=== PATIENT | male | born 1965 | race Caucasian/White ===

== ENCOUNTER → 2022-11-17 09:10 | Outpatient (CLI) | payer BC, SELFPAY ==
[2022-11-17 12:05] LABS: COVID19 -Nasal RAPID Negative (Negative)
== END ==
PROVIDERS: PCP Family Medicine; Visit Provider Surgery
DX: Z20.822 Contact with and (suspected) exposure to COVID-19 (principal); Z01.812 Encounter for preprocedural laboratory examination
CPT/HCPCS: 87635; C9803

== ENCOUNTER 2022-11-18 10:43 | Day surgery (SDC) | payer BC, SELFPAY ==
--- NOTE | 2022-11-18 | PATH_ITS ---
[facility] Accession Number: [id number] No. of containers..01 Tissue . 01 Material submitted: . colon - TRANSVERSE POLYP . 01 Diagnosis: Transverse Colon, Polyp, Biopsy: Sessile serrated adenoma. MRV 11/20/2022 1613 Local . 01 Electronically signed: . Ne Inman MD, Pathologist NPI- [id number] . 01 Gross description: . The specimen is received in formalin labeled with the patient's name, , and transverse polyp, consists of four irregular lynch soft tissue fragments ranging from 0.2 to 0.5 cm in greatest dimension. Submitted entirely in cassette A1. ([id number]) /MRV 11/19/2022 1439 Local . 01 Pathologist provided ICD-10: D12.3 . 01 CPT . 356614 Performed at: 01 [facility] [address] [place] [address], [place], [place] [id number] MD Justen Shin MD Phone: [phone]
[2022-11-18 11:38] VITALS: BP 158/102; PULSE 81; RESP 14; TEMP 36.6; O2SAT 96
[2022-11-18 11:41] VITALS: BMI 33.0
--- NOTE | 2022-11-18 11:42 | PM.HP.1 ---
History of Present Illness History of Present Illness Date Patient Seen: 11/18/22 Time Patient Seen: 11:42 Chief complaint: SDC Narrative: The patient presents for colorectal screening. They have never had any previous examination for such. No personal or family history of colon cancer. On further history denies any recent gastrointestinal symptoms. No nausea, vomiting, abdominal pain, loss of appetite, unexplained weight loss, change in bowel habits, or blood per rectum. Meds Home Medications and Allergies Home Medications Medication Instructions Recorded Confirmed Type albuterol sulfate 90 mcg/actuation 2 puff INH QID #1 ea 12/11/17 Rx aerosol inhaler (Ventolin HFA) atorvastatin 20 mg tablet mg 11/18/22 History Allergies Allergy/AdvReac Type Severity Reaction Status Date / Time No Known Allergies Allergy Uncoded 11/18/22 11:36 Exam Vital Signs (past 8 hours): - 11/18/22 11:38 Temperature 97.9 F Pulse Rate 81 Respiratory Rate 14 Blood Pressure 158/102 H Pulse Oximetry 96 Oxygen Delivery Method Room Air Oxygen Delivery Method Room Air Narrative Exam Narrative: General adult man alert oriented no acute distress Abdomen soft nontender nondistended Assessment & Plan Assessment & Plan narrative: The patient requires colorectal screening and colonoscopy is recommended. Technical details were discussed. Risks, benefits, alternatives explained. Risks including but not limited to myocardial infarction, aspiration, bleeding, pain, missed lesion, incomplete examination, need for further radiographic studies, colonic perforation, and need for major abdominal surgery were discussed. All questions were answered to their satisfaction, and they are in agreement with this plan. Time Spent With Patient Critical Care time: I spent a total of [] minutes of critical care time on this patient's care today; this time is exclusive of procedural time.
[2022-11-18] MEDS: LACTATED RINGERS 1,000 ML 200 ML IV (11:48)
--- NOTE | 2022-11-18 12:48 | PM.OP.COLON ---
Operative Date/Time/Diagnoses Date of procedure: 11/18/22 Time of procedure: 12:48 Pre-op diagnosis: Colorectal screening Post-op diagnosis: same Procedure & Clinicians Study performed: Colonoscopy Same procedure as scheduled: Yes Indications: Colorectal screening Surgeon: Rupesh Mcconnell Procedure Notes Procedure in detail: The history and physical was performed/updated and the patient is ASA class is 2. The procedure was discussed in detail with the patient. Potential risks complications including infection, bleeding, missed diagnosis, perforation, need for surgery, and were explained. Their questions were answered and informed consent was obtained. Patient was brought to the procedure room and placed standard monitoring equipment. The patient's vital signs were monitored continuously throughout the entire procedure. Prior to starting time-out was performed. The patient was placed in the left lateral recumbent position. Procedural sedation was administered by anesthesia. Examination began with a thorough inspection of the perianal area there was no evidence of fissures, fistulae, external hemorrhoids or cutaneous malignancy. The colonoscopy scope was then placed into the anal canal and was advanced to the cecum, which was identified by the ileocecal valve, the appendiceal orifice and the confluence of the taenia. The scope was then slowly withdrawn examining colon thoroughly in all directions, irrigating it of any residual stool. FINDINGS 1. Transverse colon-8 mm polyp removed with cold snare 2. Sigmoid-diverticulosis mild The patient tolerated the procedure well. They will be discharged once criteria are met. The prep was of good/excellent quality. The withdrawl time was 7 minutes. Specimen(s): other (Transverse colon polyp) Post-procedure Recommendations: High fiber diet Plan for aftercare: Follow-up dependent on pathology findings Disposition: same day surgery
[2022-11-18 13:12] VITALS: BP 138/94; PULSE 69; RESP 15; TEMP 36.4; O2SAT 96
[2022-11-18 13:17] VITALS: BP 140/99; PULSE 74; RESP 15; O2SAT 98
[2022-11-18 13:22] VITALS: BP 145/103; PULSE 68; RESP 15; TEMP 36.4; O2SAT 96
[2022-11-18 13:27] VITALS: BP 155/106; PULSE 72; RESP 17; O2SAT 96
[2022-11-18 13:29] VITALS: BP 149/104; PULSE 67; RESP 16; TEMP 36.4; O2SAT 96
== END 2022-11-18 13:44 | disposition home or self-care (01) ==
PROVIDERS: PCP Family Medicine; Referring Provider Surgery; Visit Provider Surgery
PROC: 0DJD8ZZ Inspection of Lower Intestinal Tract, Via Natural or Artificial Opening Endoscopic (ICD-10-PCS; CPT 45378; principal; 2022-11-18 11:45)
DX: Z12.11 Encounter for screening for malignant neoplasm of colon (principal); K57.30 Diverticulosis of large intestine without perforation or abscess without bleeding; D12.3 Benign neoplasm of transverse colon
CPT/HCPCS: 45380; J2704